=== PATIENT | male | born 1950 | race Two or more races ===

== ENCOUNTER 2017-09-04 15:38 | Emergency (ER) | payer MEDICARE ==
[~2017-09-04 15:38] MED LIST: EPINEPHrine SYR 0.1 MG/ML* (1:10,000) SYRINGE ONE; Sodium Bicarbonate 8.4%* 50 ML SYRINGE ONE
[2017-09-04] MEDS ORDERED: Dextrose 50% Syringe 50 ML* 25 GM/50 ML SYRINGE ONE (15:41)
[2017-09-04 15:57] LABS: FIO2 100
[2017-09-04 16:07] LABS: PCO2 Arterial 83 mmHg (35-45)
[2017-09-04 16:28] LABS: BUN/Creatinine Ratio 17.7 (8-20); Calcium 11.1 mg/dL (8.6-10.3); EGFR African American 27.7 (>60); EGFR Non-African American 21.6 (>60); Phosphorus 14.8 mg/dL (2.5-5.0); Potassium 3.5 mmol/L (3.5-5.0)
[2017-09-04 16:30] LABS: Troponin I 0.03 ng/mL (<0.04)
[2017-09-04 16:46] VITALS: BP 0/0
--- NOTE | 2017-09-04 20:51 | ED ---
Wendy Bennett Abhishek, scribed for Mauro Schulte on 09/04/17 at 1741 . HPI Cardiac - HPI Summary HPI Summary: Pt collapsed at home at 3pm as per his exwife. she called EMS and when they arrived he was in cardiac arrest. ACLS performed in the field and brought him to er at 340pm. enroute pt went into asystole few times. pt brought to er in asystole. As per pt he was complaining of abd pains for the past two days and suddenly collapsed today and went into cardiac arrest. - History of Current Complaint Stated Complaint: CARDIAC ARREST Hx Obtained From: Patient Onset/Duration: Started Hours Ago - around 1500 Timing: Constant, Lasting Hours - since Aggravating Factor(s): Nothing Alleviating Factor(s): Nothing - Allergy/Home Medications Allergies/Adverse Reactions: Allergies Allergy/AdvReac Type Severity Reaction Status Date / Time No Known Allergies Allergy Verified 09/25/15 11:18 PMH/Surg Hx/FS Hx/Imm Hx Endocrine/Hematology History: Reports: Hx Diabetes Cardiovascular History: Denies: Hx Pacemaker/ICD GI History: Reports: Hx Crohn's Disease Musculoskeletal History: Reports: Other Musculoskeletal History - osteopenia Sensory History: Denies: Hx Hearing Aid Psychiatric History: Denies: Hx Panic Disorder - Surgical History Surgery Procedure, Year, and Place: RETINAL DETACHMENT WITH LASER 2003;. HEMORROIDECTOMY 1986 Infectious Disease History: Denies: Traveled Outside the [place] in Last 30 Days - Family History Known Family History: Positive: Unknown - Patient was unresponsive when BIBA Review of Systems Constitutional: Negative Eyes: Negative ENT: Negative Positive: Other - Cardiac arrest prior to arrival Positive: Other - no respirartions Positive: Abdominal Pain - 2 days ago, Vomiting - 2 days ago, Nausea - 2 days ago Genitourinary: Negative Musculoskeletal: Negative Skin: Negative Positive: Syncope - LOC Positive: Other - Unresponsive All Other Systems Reviewed And Are Negative: Yes Physical Exam - Summary Physical Exam Summary: Appearance:unconscious Skin: dry, pale Eyes: dilated and fixed ENT: normal Neck: supple, non-tender Respiratory: No breath sounds Cardiovascular: no heart sounds Abdomen: distended Musculoskeletal: no pulses felt Neuro: unconscious, pupils dilated Triage Information Reviewed: Yes Vital Signs On Initial Exam: Initial Vitals Temp Pulse Resp BP Pulse Ox 95.7 F 0 7 0/0 75 09/04/17 16:39 09/04/17 16:39 09/04/17 16:39 09/04/17 16:39 09/04/17 16:39 Vital Signs Reviewed: Yes Diagnostics - Vital Signs Vital Signs Temp Pulse Resp BP Pulse Ox 09/04/17 16:39 95.7 F 0 7 0/0 75 - Laboratory Lab Results: Lab Results 09/04/17 09/04/17 09/04/17 Range/Units 15:50 16:00 16:00 INR (Anticoag Therapy) 1.25 H (0.89-1.11) APTT 45.6 H (26.0-36.3) seconds Patient Temperature Not Reportable ABG pH < 7.00 L* (7.35-7.45) ABG pH (Temp Correct) Not Reportable ABG pCO2 83 H* (35-45) mmHg ABG pCO2 (Temp Corrct Not Reportable ABG pO2 229 H (80-100) mmHg ABG pO2 (Temp Correct Not Reportable ABG HCO3 7.9 L* (19-31) mmol/L ABG O2 Saturation 98.9 H (95-98) % ABG Base Excess -21.9 L (-2.0-2.0) Respiration Rate Not Reportable Ventilator Type Not Reportable Vent Mode Not Reportable FiO2 100 Inspiratory Time Not Reportable PEEP Not Reportable Pressure Support Not Reportable Pressure Control Not Reportable EPAP Not Reportable IPAP Not Reportable BiPAP Not Reportable Sodium 142 (133-145) mmol/L Potassium 3.5 (3.5-5.0) mmol/L Chloride 94 L (101-111) mmol/L Carbon Dioxide 16 L (22-32) mmol/L Anion Gap 32 H (2-11) mmol/L BUN 52 H (6-24) mg/dL Creatinine 2.93 H (0.67-1.17) mg/dL Est GFR ( Amer) 27.7 (>60) Est GFR (Non-Af Amer) 21.6 (>60) BUN/Creatinine Ratio 17.7 (8-20) Glucose Pending Calcium 11.1 H (8.6-10.3) mg/dL Phosphorus 14.8 H (2.5-5.0) mg/dL Troponin I 0.03 (<0.04) ng/mL Blood Type Antibody Screen 09/04/17 Range/Units 16:00 INR (Anticoag Therapy) (0.89-1.11) APTT (26.0-36.3) seconds Patient Temperature ABG pH (7.35-7.45) ABG pH (Temp Correct) ABG pCO2 (35-45) mmHg ABG pCO2 (Temp Corrct ABG pO2 (80-100) mmHg ABG pO2 (Temp Correct ABG HCO3 (19-31) mmol/L ABG O2 Saturation (95-98) % ABG Base Excess (-2.0-2.0) Respiration Rate Ventilator Type Vent Mode FiO2 Inspiratory Time PEEP Pressure Support Pressure Control EPAP IPAP BiPAP Sodium (133-145) mmol/L Potassium (3.5-5.0) mmol/L Chloride (101-111) mmol/L Carbon Dioxide (22-32) mmol/L Anion Gap (2-11) mmol/L BUN (6-24) mg/dL Creatinine (0.67-1.17) mg/dL Est GFR ( Amer) (>60) Est GFR (Non-Af Amer) (>60) BUN/Creatinine Ratio (8-20) Glucose Calcium (8.6-10.3) mg/dL Phosphorus (2.5-5.0) mg/dL Troponin I (<0.04) ng/mL Blood Type B Positive Antibody Screen Pending Result Diagrams: 09/04/17 16:00 Lab Statement: Any lab studies that have been ordered have been reviewed, and results considered in the medical decision making process. Disposition - Course Course Of Treatment: Patient came in cadiac arrest without vitals. ACLS protocol performed. regianed pulse few times and went into cardiac arrest and discussed with family/exwife unstable condition. pt pronounced at 1642. - Differential Dx - Cardiopulmonary Differential Diagnoses - Cardiopulmonary: CHF - acute abdomen/cardiac arrest, Myocardial Infarction - Diagnoses Provider Diagnoses: Cardiopulmonary arrest - Critical Care Time Critical Care Time: 30-74 min - 64 minutes of Critical care time. Discharge - Discharge Plan Condition: Disposition: Referrals: Alvarez Borges, [Primary Care Provider] - The documentation as recorded by the Wendy sierra Abhishek accurately reflects the service I personally performed and the decisions made by me, Mauro Schulte.
== END 2017-09-04 18:17 | disposition expired ==
LOC: ED 15:38
DX: I46.9 Cardiac arrest, cause unspecified (principal)
CPT/HCPCS: 36415; 36600; 80048; 82803; 83605; 84100; 84484; 85610; 85730; 86850; 86900; 86901; 92950; 94002; 99285; J0171